=== PATIENT | female | born 1980 | race Two or more races ===

== ENCOUNTER 2018-11-17 23:05 | Emergency (ER) | payer BC ==
[~2018-11-17] VITALS: Ht 154.9 cm; Wt 54.5 kg
[2018-11-18 00:49] LABS: APPEARANCE,URINE CLOUDY (CLEAR); BILIRUBIN,URINE NEGATIVE (NEGATIVE); GLUCOSE, URINE (UA) NEGATIVE (NEGATIVE); KETONES,URINE NEGATIVE (NEGATIVE); LEUKOCYTE ESTERASE ,URINE MODERATE (NEGATIVE); NITRATE,URINE POSITIVE (NEGATIVE); OCCULT BLOOD,URINE LARGE (NEGATIVE); PH,URINE 6.5 (5.0-8.0); PROTEIN,URINE SEE CONFIRM (NEGATIVE); UROBILINOGEN,URINE 0.2 mg/dL (<=1.0)
[2018-11-18 00:57] LABS: WBC,URINE >100 /HPF (0-5)
[2018-11-18 00:58] LABS: BACTERIA,URINE Moderate /HPF (None Seen); SQUAMOUS EPITHELIAL CELL,UR Few /LPF (None Seen); SULFOSALICYLIC ACID,URINE 1+ (Negative)
[2018-11-18] MEDS: KETOROLAC TROMETHAMINE 60 MG/2 ML VIAL IM ONE (03:32)
[2018-11-18] MEDS: CefTRIAXone SODIUM 1 GM/VIAL IM ONE (03:32)
[2018-11-18] MEDS: LIDOCAINE/PF 1% 2 ML VIAL IM ONE (03:32)
[2018-11-18 03:51] VITALS: BP 117/78
== END 2018-11-18 03:55 | disposition home or self-care (01) ==
LOC: EMS 23:08
DX: N39.0 Urinary tract infection, site not specified (principal)
CPT/HCPCS: 81001; 84703; 87077; 87086; 87186; 96372; 99283; J0696; J1885; J3490